=== PATIENT | female | born 1990 | race Native Hawaiian/Other Pacific Islander ===

== ENCOUNTER 2017-08-20 07:41 | Day surgery (SDC) | payer OTHER ==
[2017-08-20 08:12] VITALS: O2SAT 100
[2017-08-20] MEDS ORDERED: Lactated Ringer's 1,000 ML IV ONE ×2 (08:49)
[2017-08-20] MEDS ORDERED: Midazolam 2 MG/2 ML VIAL ONE (08:51)
[2017-08-20] MEDS ORDERED: Propofol 10 mg/ml Inj (20 ML) ONE (08:51)
[2017-08-20] MEDS ORDERED: HYDROmorphone 0.5 mg/0.5 ml ISec IVP PRN (09:32)
--- NOTE | 2017-08-20 09:38 | PCM.SURG1 ---
Surgeon's Initial Post Op Note - Surgeon's Notes Surgeon: dr zarate Personal Financial Representative: none Type of Anesthesia: General LMA Anesthesia Administered By: 26 yr with endometrial polyp Pre-Operative Diagnosis: 26 yr AUB R/o endometrial polyp Operative Findings: see the op report Post-Operative Diagnosis: same Operation Performed: myasure d &c, hysterscopy Specimen/Specimens Removed: ecc. emc. polyp Estimated Blood Loss: EBL {In ML}: 20 Blood Products Given: N/A Drains Used: No Drains Post-Op Condition: Good Date of Surgery/Procedure: 08/20/17 Time of Surgery/Procedure: 09:00
[2017-08-20 11:55] VITALS: BP 124/81; PULSE 74; RESP 18; TEMP 97.8
--- NOTE | 2017-08-20 12:55 | OP ---
PREOPERATIVE DIAGNOSES: A 26-year-old 0, para 0 with abnormal uterine bleeding, rule out polyp. POSTOPERATIVE DIAGNOSES: A 26-year-old 0, para 0 with abnormal uterine bleeding, endometrial polyp. SURGEON: Dr. Thomas. 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 ANESTHESIA: General anesthesia. ANESTHESIOLOGIST: Dr. Guido. COMPLICATIONS: None. ESTIMATED BLOOD LOSS: 20 mL. DEFICIT: 300 mL. PROCEDURE: MyoSure, dilation and curettage, cystoscopy, DESCRIPTION OF PROCEDURE: After informed consent was obtained, the patient was brought to the operating room, placed on the table where general anesthesia was given. Once the anesthesia was sufficient, the patient was prepped and draped in the normal sterile fashion. Examination of the uterus to be revealed to be 8-week size. No pelvic or adnexal masses. After that, gentle dilatation of the cervix was done. Then, anterior lip of the cervix was grasped with a tenaculum. Gentle dilatation of the cervix was done. Then, the hysteroscope was introduced and found to be polyp on the posterior wall of the uterus. Pictures were taken and the decision was made to use the MyoSure. MyoSure was used to remove the polyp. After that, sharp curettage of all the hdez of the uterus was done. Moderate amount of polypoid tissue was taken and it was sent to the pathology. ECC was done and it was sent to the pathology too. Tenaculum was taken out. The patient tolerated the procedure well. Lap, sponge, and instrument counts were correct x2. She is going to be discharged. She is going to follow up in the office in 2 weeks and no sex for two weeks and Keflex to go home with. Julio Thomas MD
== END 2017-08-20 11:58 | disposition home or self-care (01) ==
LOC: C.SDS 07:41
PROVIDERS: ATTEND Obstetrics & Gynecology
DX: N84.0 Polyp of corpus uteri (principal); N93.8 Other specified abnormal uterine and vaginal bleeding
CPT/HCPCS: 58558; 88305; J2001; J2250; J2704; J3010; J7120